=== PATIENT | male | born 1980 | race Asian ===

== ENCOUNTER 2023-03-06 03:13 | Emergency (ER) | payer BC, SELFPAY ==
--- NOTE | ~2023-03-06 | CT_ITS ---
CT of the Abdomen and Pelvis: Indication: Abdominal pain Technique: 2.5 mm axial scans were obtained through the abdomen and pelvis following intravenous adm inistration of 100 cc of Omnipaque 350. Dose reduction technique was used on this scan by utilizing a utomated exposure control and iterative reconstruction technique. The dose-length product (DLP) was 8 16.09 mGy-cm. Findings: Scans through the lung bases are unremarkable. Small hepatic cyst noted. Gallstones are present. The spleen, pancreas, adrenals and kidneys are with in normal limits. No evidence of aortic aneurysm. No lymphadenopathy. No bowel obstruction or bowel wall thickening. There is no evidence to suggest acute appendicitis. Images through the pelvis were performed. Urinary bladder unremarkable. Prostate gland and seminal ve sicles are unremarkable. No ascites. Impression: Cholelithiasis. Reviewed, dictated and finalized at [facility]. Impression: Cholelithiasis.
[2023-03-06 03:16] VITALS: BP 140/91; PULSE 88; RESP 18; TEMP 36.7; O2SAT 99
[2023-03-06 03:27] VITALS: BP 154/87; PULSE 89; RESP 12; TEMP 37; O2SAT 95
[2023-03-06 03:44] LABS: Basophils Percent Auto 0.1 % (0.2-1.2); Hematocrit 50.1 % (42.0-52.0); Hemoglobin 16.9 g/dL (14.0-18.0); Immature Granulocyte Absolute 0.03 K/mm3 (0.00-0.031); Immature Granulocyte Percent A 0.3 % (0-0.5); Lymphocytes Absolute Auto 0.37 K/mm3 (0.9-3.2); Lymphocytes Percent Auto 3.4 % (18.3-44.2); Mean Corpuscular HGB Conc 33.7 g/dl (32-36); Mean Corpuscular Hemoglobin 30.4 pg (26-34); Mean Corpuscular Volume 90.1 fl (80-100); Mean Platelet Volume 8.8 fl (7.4-10.4); Monocytes Absolute Auto 0.4 K/mm3 (0.1-0.6); Monocytes Percent Auto 3.2 % (2.6-8.5); Neutrophils Absolute Auto 10.1 K/mm3 (1.3-6.7); Platelet Count Result 225 k/mm3 (150-375); Red Blood Count 5.56 M/mm3 (4.6-6.20); Red Cell Distribution Width 12.1 % (11.5-14.5); White Blood Count 10.8 K/mm3 (4.5-10.0)
--- NOTE | 2023-03-06 03:46 | ED.GENADULT ---
HPI - General Adult General Chief complaint: Abdominal Pain Stated complaint: abd pain Time Seen by Provider: 03/06/23 03:24 History of Present Illness HPI narrative: Patient 42-year-old gentleman presents emerged from with chief complaint of abdominal pain. The patient reports that he started having pain in the epigastric region started at 6 PM this evening patient reports has had some nausea vomiting diarrhea with patient reports the pain is much pain and feels as though his abdomen is extremely full patient states he had no prior abdominal surgeries denies fever but states he has felt as though he is warm patient states that has had no cough no blood in the stools patient denies urinary symptoms. Related Data Allergies Allergy/AdvReac Type Severity Reaction Status Date / Time No Known Allergies Allergy Unverified 12/07/12 17:33 Review of Systems Review of Systems: A 10 system review of systems was completed on the patient and is negative except for what is stated in the HPI. Nursing and ancillary documentation was reviewed. [facility] Family History Family History Father Patient's father is in good health Sibling Patient's sister is in good health Mother Family history of diabetes mellitus in first degree relative Social History Social History Smoking status: Never smoker Alcohol intake: current Exam Narrative: GENERAL: Well-appearing, well-nourished, and in no acute distress. HEAD: Normocephalic, atraumatic. EYES: PERRLA and EOMI. ENT: Nares clear, no rhinorrhea or epistaxis. Mucous membranes moist. NECK: Supple. CHEST: Clear to auscultation. No respiratory distress. HEART: Regular rate and rhythm. No murmur heard. Normal peripheral pulses. ABDOMEN: Soft, tenderness to palpation in the epigastric region, nondistended, normal active bowel sounds. EXTREMITIES: Normal range of motion. No edema. SKIN: Warm, dry, no rash. NEURO: No focal deficits. Alert and oriented x3. PSYCH: Normal mood and affect. Course Vital Signs Vital signs: Vital Signs Temperature 36.7 C 03/06/23 03:16 Pulse Rate 88 03/06/23 03:16 Respiratory Rate 18 03/06/23 03:16 Blood Pressure 140/91 H 03/06/23 03:16 Pulse Oximetry 99 03/06/23 03:16 Oxygen Delivery Room Air 03/06/23 03:16 Temperature 37.0 C 03/06/23 03:27 Pulse Rate 84 03/06/23 04:36 Respiratory Rate 22 H 03/06/23 04:36 Blood Pressure 151/82 H 03/06/23 04:36 Pulse Oximetry 97 03/06/23 04:36 Oxygen Delivery Room Air 03/06/23 03:16 Medical Decision Making MDM Narrative Medical decision making narrative: Differential diagnosis includes cholecystitis, cholelithiasis, gastritis Laboratory studies were obtained and the patient showed a CBC with a white count of 10.8 electrolytes and liver enzymes are within normal limits urinalysis showed no evidence of UTI CT scan of the abdomen pelvis showed cholelithiasis without cholecystitis Vital Signs Vital Signs: Vital Signs Temperature 36.7 C 03/06/23 03:16 Pulse Rate 88 03/06/23 03:16 Respiratory Rate 18 03/06/23 03:16 Blood Pressure 140/91 H 03/06/23 03:16 Pulse Oximetry 99 03/06/23 03:16 Oxygen Delivery Room Air 03/06/23 03:16 Temperature 37.0 C 03/06/23 03:27 Pulse Rate 84 03/06/23 04:36 Respiratory Rate 22 H 03/06/23 04:36 Blood Pressure 151/82 H 03/06/23 04:36 Pulse Oximetry 97 03/06/23 04:36 Oxygen Delivery Room Air 03/06/23 03:16 Lab Data 03/06/23 03:38 03/06/23 03:38 Labs: Lab Results 03/06/23 03/06/23 Range/Units 03:38 05:17 WBC 10.8 H (4.5-10.0) K/mm3 RBC 5.56 (4.6-6.20) M/mm3 Hgb 16.9 (14.0-18.0) g/dL Hct 50.1 (42.0-52.0) % MCV 90.1 (80-100) fl MCH 30.4 (26-34) pg MCHC 33.7 (32-36) g/dl RDW 12.1 (11.5-14.5) % Pl
[2023-03-06] MEDS: SODIUM CHLORIDE 0.9% IV 1,000 ML 999 ML IV CONT (03:48)
[2023-03-06] MEDS: ONDANSETRON INJ 4 MG/2 ML VIAL IV PUSH (03:49)
[2023-03-06] MEDS: DICYCLOMINE HCL INJ 20 MG/2 ML VIAL IM (03:50)
[2023-03-06 03:56] LABS: Alanine Aminotransferase 30 U/L (6-50); Albumin Level 4.7 g/dL (3.5-5.1); Alkaline Phosphatase 74 U/L (38-126); Anion Gap 10 mmol/L (8-16); Aspartate Amino Transferase 30 U/L (17-59); Bilirubin,Total 1.2 mg/dL (0.2-1.3); Blood Urea Nitrogen 19 mg/dL (9-20); Calcium 8.9 mg/dL (8.4-10.2); Carbon Dioxide 22 mmol/L (22-30); Chloride 106 mmol/L (98-107); Estimated CRCL calculation 105 ml/min; Estimated Glomerular Filt Rate > 60; Glucose 120 mg/dL (65-110); Lipase 64 U/L (23-300); Potassium 3.8 mmol/L (3.4-5.0); Sodium 138 mmol/L (137-145)
--- NOTE | 2023-03-06 04:35 | PC.NURSE ---
Patient states that his abdominal pain is gone, but he still feels bloated. EDP Dr. Thornton notified.
[2023-03-06 04:36] VITALS: BP 151/82; PULSE 84; RESP 22; O2SAT 97
[2023-03-06 05:27] LABS: Appearance Urine Clear (Clear); Bilirubin Urine Negative (Negative); Blood Urine Negative (Negative); Color Urine Yellow (Yellow); Glucose Urine UA Negative (Negative); Ketones Urine Negative (Negative); Leukocyte Esterase Ur Negative LEU/UL (Negative); Nitrate Urine Negative (Negative); Protein Urine Negative (Negative); Urobilinogen Urine 0.2 mg/dL (<2.0)
[2023-03-06 06:10] LABS: Specific Grav Ur 1.065 (1.001-1.035)
[2023-03-06 06:11] LABS: Add Urine Microscopic? NO
[2023-03-06 06:42] VITALS: BP 135/85; PULSE 72; RESP 15; TEMP 36.6; O2SAT 99
== END 2023-03-06 06:43 | disposition home or self-care (01) ==
PROVIDERS: Emergency Provider Emergency Medicine
DX: K80.20 Calculus of gallbladder without cholecystitis without obstruction (principal)
CPT/HCPCS: 36415; 74177; 80053; 81003; 83690; 85025; 96361; 96372; 96374; 99284; J0500; J2405; J7030; Q9967

== ENCOUNTER 2023-04-10 08:03 | Outpatient (CLI) | payer BC, SELFPAY ==
[2023-04-10 08:32] LABS: Amylase 93 U/L (30-110)
== END 2023-04-10 08:04 | disposition home or self-care (01) ==
LOC: ANHSURGERY 08:07
PROVIDERS: Visit Provider Surgery
DX: K80.20 Calculus of gallbladder without cholecystitis without obstruction (principal); Z01.818 Encounter for other preprocedural examination
CPT/HCPCS: 36415; 82150; 86850; 86900; 86901

== ENCOUNTER 2023-04-14 01:12 | Day surgery (SDC) | payer BC, SELFPAY ==
[2023-04-07 15:12] VITALS: BMI 27.1
--- NOTE | 2023-04-07 15:13 | PC.NURSE ---
Report to the Outpatient Waiting Room, entrance under the green pavilion located off [facility], at time _0630_ on date _[id number]_. Planned Procedure Time: _0830_. Time changes happen often and if your time is changed the preop area will call you the afternoon before. - You and your visitor will be asked to self-screen and do not enter if you have any COVID symptoms. - A mask is optional within the hospital at this time. Patients may have clear liquids (water, carbonated beverages, clear teas, apple juice) until 3 hours prior to surgery with a maximum of 20 ounces. - No food from midnight until time of surgery Take the following medications with a SIP of water the morning of surgery: __None DO NOT STOP ANY OF YOUR OTHER PRESCRIPTION MEDICATIONS PRIOR TO SURGERY ?EXCEPT THE FOLLOWING Medications to discontinue per physician None Date to take last dose Please no make-up, nail kazakh, hairspray, perfume, deodorant, or body powder the day of surgery. No jewelry (including any body piercings) or valuables the day of surgery, leave them at home. Please take a shower or bath the night before, or the morning of, surgery with Hebiclense, an antibacterial soap. Wear comfortable, loose fitting clothing. - Jewelry must be removed prior to entering the operating room. Rings and piercings that are not removed may be cut off. - The hospital will not accept responsibility for valuables. - Please leave all valuables, including medications, at home the day of surgery. If you are going home after surgery, a licensed school bus driver/custodian must drive you home. - NO public transportation without another adult if you receive anesthesia. - We recommend that an adult stay with you for 24 hours following discharge. - We also recommend that you do not drive, make important decision, drink alcoholic beverages, or take any drugs that were not prescribed by your health care provider for at least 24 hours after your discharge time. Follow any additional instructions given to you from your surgeon. If you or anyone in your household have experienced Covid symptoms in the past week, please notify your surgeon or the nurse liaison at the phone number below for possible testing. Telephone instructions given to _Kadeem_and asked if any additional questions and then verbalized understanding. Patient advised to call surgeon office or pre surgery nurse liaison [phone] if any additional questions.
[2023-04-14] VITALS (7 sets, daily range): BP systolic 123–139; BP diastolic 75–97; PULSE 63–79; RESP 16–18; TEMP 36.2–36.6; O2SAT 97–100
[2023-04-14] MEDS: ACETAMINOPHEN 500 MG TABLET 1000 MG PO (07:08)
[2023-04-14] MEDS: LACTATED RINGERS 1,000 ML 30 ML IV CONT ×2 (07:20→10:33)
[2023-04-14] MEDS: KETOROLAC 15 MG/ML VIAL (*BKC) IV PUSH ×2 (08:21→10:07)
--- NOTE | 2023-04-14 08:21 | WPDANESEPPF ---
Anes - Initial Pre Proc Eval Procedure: Operation Date: 04/14/23 08:30 Proposed Procedures p Laparoscopic Cholecystectomy, Possible Open - Tarun King MD Date/Time: 04/14/23 08:21 Surgeon: Tarun King MD Pre Op Diagnosis: symp cholelithiasis Patient Data Age: 43 Gender: M Height: 1.83 m Weight: 91 kg Last Vital Signs Temp 36.6 C 04/14/23 07:36 Pulse 67 04/14/23 07:36 Resp 16 04/14/23 07:36 BP 132/89 04/14/23 07:36 Pulse Ox 98 04/14/23 07:36 O2 Del Method Room Air 04/14/23 07:36 Allergies Allergy/AdvReac Type Severity Reaction Status Date / Time No Known Allergies Allergy Verified 04/14/23 06:47 Home Medications Medication Instructions Recorded Confirmed Type No Home Medications 03/14/23 04/07/23 History Patient hx anesthesia problems: none Family hx anesthesia problems: none Results Review: All pre-operative results and documents have been reviewed as part of the pre-operative evaluation. 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 Informed Consent: The patient's anesthetic plan and its attendant risks and benefits were discussed with the patient/family/POA. Questions were solicited and answers provided to the satisfaction of the patient/family/POA.
--- NOTE | 2023-04-14 09:12 | PM.IMHP ---
H&P: HPI History of Present Illness Date/Time: 04/14/23 09:12 Chief Complaint: Symptomatic cholelithiasis Narrative: Kadeem is a 42 y/o male who presents to the office accompanied by his for evaluation of epigastric pain with associated nausea/vomiting and diarrhea. Patient was seen at [facility] ED on 03/06/23, he first started experiencing these symptoms prior to arrival. He had eaten a spicy meal prior to going to the ED. CT abd/pelvis was performed and showed cholelithiasis. Patient states his pain level has since then improved. He reports mild epigastric discomfort. He is no longer taking the prescribed pain medication and completed the prescribed antibiotics. Review of Systems Review of Systems: The remainder of the review of systems to include constitutional, HEENT, cardiovascular, respiratory, GI, , integumentary, musculoskeletal, endocrine, immunologic, hematologic, psychiatric, and neurologic are all negative except for which is mentioned above in the HPI. 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 Spiritual care concerns: No Meds Home Medications and Allergies Home Medications Medication Instructions Recorded Confirmed Type No Home Medications 03/14/23 04/07/23 History Allergies Allergy/AdvReac Type Severity Reaction Status Date / Time No Known Allergies Allergy Verified 04/14/23 06:47 Vital Signs Vital Signs - 24 hr 04/14/23 07:36 Temperature 36.6 C Pulse Rate 67 Respiratory Rate 16 Blood Pressure 132/89 Pulse Oximetry 98 Oxygen Delivery Room Air Exam Const: General: comfortable HENMT: Ears: TM's normal bilaterally Face/Nose/Sinus: Normal nares present Mouth: Yes moist mucous membranes Eyes: General: appearance normal, both eyes and all related structures Sclera: sclerae normal Pupils: Equal, round and reactive pupils present EOM: EOMs intact bilaterally Neck: Neck: supple and no JVD Resp: Effort & Inspection: normal respiratory effort Auscultation: clear to auscultation bilaterally Cardio: Rate: regular rate Rhythm: regular rhythm GI: GI Palp: Yes Soft to palpation, No Firmness to palpation present (GI), No Tenderness to palpation present (GI), No Guarding due to palpation present (GI) and No Hernia present Skin: General skin exam: normal color and no rashes or lesions noted Neuro: General: gait normal Speech: normal speech Motor exam (neuro): 5/5 motor strength present throughout Extrem: General: normal to inspection Psych: Mental Status: mental status grossly normal Affect: normal affect Assessment and Plan Assessment and plan (1) Symptomatic cholelithiasis: Code(s): K80.20 - Calculus of gallbladder without cholecystitis without obstruction Status: Acute Assessment and Plan: Patient presents for evaluation of epigastric pain with associated nausea/vomiting and diarrhea. I have reviewed the ED report and radiology imaging prior to today's visit. I discussed the finding with the patient. I have recommended proceeding with laparoscopic cholecystectomy, possible open, to be done under general anesthesia as an outpatient. We discussed the procedure in detail as well as risks of conversion to open, bleeding, infection & bile leak. Gallbladder information sheet and low fat diet information was giv
--- NOTE | 2023-04-14 09:14 | WPDHPUPDATE1 ---
History and Physical Update Update Date/Time: 04/14/23 09:14 History and Physical has been reviewed, including an updated exam of the patient. There are NO changes in the patient's condition. Risks, benefits, and alternatives have been discussed and questions answered. Patient agrees to proceed with procedure.
[2023-04-14] MEDS: ceFAZolin 2 GM/D5W 50 ML 2 GM/50 ML BAG IVPB (09:21)
[2023-04-14] MEDS: LIDO 1%/EPINEPHRINE 1:100,000 50 ML VIAL 30 ML INFILTRATE (09:53)
--- NOTE | 2023-04-14 10:27 | W.PM.PROC2 ---
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 Abdominal ultrasound in the emergency room showed of gallstones. No acute cholecystitis. His pain was controlled emergency room he was discharged from the ER with follow-up in the office. The office his complaints and physical examination was consistent with symptomatic cholelithiasis. He presents now for elective laparoscopic cholecystectomy. Findings Multiple gallstones within the gallbladder. Minimal if any inflammation. No abdominal adhesions. Description of Procedure After informed consent was obtained patient brought to the operating room was placed supine position and general endotracheal anesthesia was administered. The abdomen was then prepped and draped usual sterile fashion. Time-out was then performed correctly identifying the patient as well as procedure to be performed. Patient was given perioperative IV antibiotics. I 1st started by placing a small infraumbilical incision with a scalpel and then spread the subcutaneous tissue was Urmila clamp until I identified the umbilical stalk. Then with traction upwards on the anterior abdominal wall a Veress needle placed into the abdomen out difficulty. The abdomen was then insufflated to adequate pneumoperitoneum of 15mmHg of CO2. A 5mm Optiview port was then used to enter the abdomen in the periumbilical trocar port site. Once inside the abdomen I then placed an epigastric 10mm trocar port and 2 right lateral subcostal 5mm trocar ports all under direct visualization. The gallbladder was visualized it was distended but without any adhesions the omentum and duodenum to the gallbladder wall. There is minimal if any chronic or acute inflammation. The gallbladder was held laparoscopic grasper at the dome and elevated over the right have lowered his right shoulder. Second grasper is used to hold the gallbladder infundibulum. I then proceeded to strip down the visceral peritoneum off of the infundibular gallbladder identified the cystic duct. Cystic duct was then dissected out circumferentially. Cystic artery was identified was dissected out circumferentially as well. Posterior wall the gallbladder at the infundibulum dissected free of the liver into the critical view was obtained. At this point I then placed 2 clips proximally cystic duct and 2 clips distally high on infundibular gallbladder. The cystic duct was divided with Endo Criselda. In a similar fashion cystic artery clipped and divided as well. The gallbladder is then resected off the liver utilized electrocautery. There dissection of gallbladder wall was punctured and there was spillage of bile. The gall was completely resected off the liver without spilling any gallstones. Once the gallbladder free from the liver is placed into an Endo-Catch bag and brought out the epigastric port site. Gallbladder gallstones were sent to pathology for examination. I then irrigated out the right upper quadrant the abdomen the gallbladder fossa copious sterile saline solution. Hemostasis was good. Notes of bile leak was seen. I irrigated and aspirated as much of the bile as I could from the right upper quadrant and from the pelvis. I then removed all the trocar ports under visualization all port sites appeared hemostatic. I then allowed the abdomen decompressed. I then irrigated out the port sites sterile saline solution. The 10mm epigastric port site was then closed with 0 Vicryl suture in a figure-eight fashion at the fascial level. The port sites were then all closed the skin utilizing a running subcuticular 4 Monocryl suture. Incisio
[2023-04-14] MEDS: oxyCODONE HCL (*CRX) 5 MG TAB IR PO (11:28)
== END 2023-04-14 12:17 | disposition home or self-care (01) ==
PROVIDERS: Visit Provider Surgery
PROC: 0FT44ZZ Resection of Gallbladder, Percutaneous Endoscopic Approach (ICD-10-PCS; CPT 47562; principal; 2023-04-14 08:30)
DX: K80.10 Calculus of gallbladder with chronic cholecystitis without obstruction (principal); Z85.6 Personal history of leukemia
CPT/HCPCS: 47562; 36415; 82150; 86850; 86900; 86901; 88304; A9270; C1713; J0690; J1100; J1170; J1885; J2250; J2405; J2704; J3010; J7120

== ENCOUNTER 2024-03-09 10:01 | Emergency (ER) | payer BC, SELFPAY ==
--- NOTE | ~2024-03-09 | XR_ITS ---
XR chest 2V Ordering provider: Richard Conti APRN History: 43 years Male with . productive cough, sob, fever x 2.5 wks . Comparison: None. FINDINGS: MEDIASTINUM: The cardiac silhouette is not enlarged. LUNGS: No infiltrates, effusions or pneumothorax. OTHER: No free air under the diaphragm. IMPRESSION: No acute cardiopulmonary pathology. Reviewed, dictated and finalized at location A.
--- NOTE | 2024-03-09 10:02 | ED.URI ---
HPI - URI/Sore Throat General Chief Complaint: Upper Respiratory Infection Stated Complaint: FEVER/DIARRHEA/COUGH/CONGESTION/BODY ACHES Time Seen by Provider: 03/09/24 10:01 Source: patient Mode of arrival: ambulatory Limitations: no limitations History of Present Illness HPI Narrative: Kadeem is a 43-year-old male patient presenting to the clinic today with complaints of fever, cough, congestion body aches, and diarrhea. He reports the cough and congestion has been going on for a couple weeks however he has now developed fever, chills, body aches, and diarrhea since yesterday. He denies any chest pain but does have shortness of breath. States he has had shortness of breath more with exertion. MD elicited complaint: cough, nasal congestion and other (Chest congestion, body aches, diarrhea) Related Data Allergies Allergy/AdvReac Type Severity Reaction Status Date / Time No Known Allergies Allergy Verified 04/29/23 09:58 Review of Systems Review of Systems: Pertinent positives per HPI. Patient denies any rash, headache, visual changes, dizziness, chest pain, palpitations, nausea, vomiting, constipation, abdominal pain, or any urinary issues. 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 There is no relevant family history pertinent to the patient complaint. Exam Narrative: General: Well-developed, well nourished, acutely ill-appearing Head: Normocephalic, atraumatic Eyes: Pupils equally round and reactive to light bilaterally, EOM intact, sclera and conjunctive clear, no discharge, lids normal Ears: TMs intact and congested, ear canals clear, no drainage, grossly hearing normal. Nose: Nares patent, clear nasal discharge, no inflammation, maxillary sinus tenderness. Mouth: Oral pharynx without lesions or masses, good dentition, MMM. Neck: Supple, trachea midline, no enlargement of anterior or posterior cervical nodes, no thyroid masses or goiter palpable. Cardio: Regular rate and rhythm, s1 and s2 normal, no murmur appreciated. Resp: Diminished in the bases, no rhonchi, rales, wheezing or rubs Course Course Emergency Course: Portions of this record may have been created with voice recognition software. Level of Care: Express Care Visit Vital Signs Vital signs: Vital Signs Oxygen Delivery Room Air 03/09/24 10:05 Temperature 37.6 C H 03/09/24 10:10 Pulse Rate 104 H 03/09/24 10:10 Respiratory Rate 16 03/09/24 10:10 Blood Pressure 126/87 03/09/24 10:10 Pulse Oximetry 98 03/09/24 10:10 Oxygen Delivery Room Air 03/09/24 10:05 Vital signs reviewed MDM - URI/Sore Throat MDM Narrative Medical decision making narrative: At the time of visit patient is resting comfortably on the exam table. Patient appears to be nontoxic. Diagnostics: Chest x-ray was performed and negative for any acute cardiopulmonary process. Plan: I suspect patient has bacterial rhinosinusitis/bronchitis. We will send in prescription fo
[2024-03-09 10:10] VITALS: BP 126/87; PULSE 104; RESP 16; TEMP 37.6; O2SAT 98
== END 2024-03-09 10:38 | disposition home or self-care (01) ==
PROVIDERS: Emergency Provider Nurse Practitioner Family
DX: J32.9 Chronic sinusitis, unspecified (principal); J40 Bronchitis, not specified as acute or chronic; Z85.6 Personal history of leukemia
CPT/HCPCS: 71046; 99213; G0463